=== PATIENT | female | born 1995 | race African-American/Black ===

== ENCOUNTER 2023-01-08 07:49 | Emergency (ER) | payer OTHER ==
[~2023-01-08] VITALS: Ht 160 cm; Wt 51.3 kg
--- NOTE | 2023-01-08 08:00 | NUR ---
Dr Portillo at the bedside for MSE.
[2023-01-08 08:16] LABS: *BILIRUBIN,URIN 1+ (NEGATIVE); *BLOOD, URINE 2+ (NEGATIVE); *CLARITY,URINE CLEAR (CLEAR); *COLOR,URINE YELLOW (YELLOW); *KETONES,URINE 4+ (NEGATIVE); *UROBILINOGEN,URINE 0.2 E.U./dl (NORMAL); LEUKOCYTE ESTERASE ,URINE NEGATIVE (NEGATIVE); NITRITE, URINE NEGATIVE (NEGATIVE); UGLUCOSE NEGATIVE (NEGATIVE)
[2023-01-08 08:17] LABS: *URINE HCG, QUAL NEGATIVE (NEGATIVE)
[2023-01-08] MEDS ORDERED: IV NORMAL SALINE 500 ML BAG IV ONE (08:30)
[2023-01-08 09:06] LABS: HEMATOCRIT 31.2 % (31.2-41.9); MEAN CORPUSCULAR HEMOGLOBIN 27.3 uug (24.7-32.8); MEAN CORPUSCULAR VOLUME 81.5 fL (75.5-95.3); PLATELET COUNT (AUTO) 597 K/uL (179-408)
[2023-01-08 09:15] LABS: BILIRUBIN,TOTAL 0.6 mg/dL (0.2-1.0); CREATININE 0.8 mg/dL (0.6-1.3); POTASSIUM 3.5 mmol/L (3.5-5.1); TOTAL PROTEIN, SERUM 8.9 g/dL (6.4-8.2)
[2023-01-08 09:19] LABS: *OCCULT BLOOD STOOL POSITIVE (NEGATIVE)
[2023-01-08 09:30] LABS: BACTERIA,URINE NONE SEEN /HPF (NONE SEEN); SQUAMOUS EPITHELIAL CELL,UR NONE SEEN /HPF (NONE SEEN); WBC,URINE NONE SEEN /HPF (0-3)
--- NOTE | 2023-01-08 11:10 | NUR ---
PT states feeling better and denies, N/V/D.
[2023-01-08] MEDS ORDERED: ONDANSETRON ODT 4 MG TAB.RAPDIS ONE (11:38)
[2023-01-08] MEDS ORDERED: ONDANSETRON ODT 4 MG TAB.RAPDIS SL ONE (11:45)
--- NOTE | 2023-01-08 12:07 | NUR ---
IV removed. Catheter intact and site benign. Pressure and 4x4 gauze applied to site. No bleeding noted.
[2023-01-08 12:08] VITALS: BP 114/70
== END 2023-01-08 12:09 | disposition home or self-care (01) ==
LOC: ER 07:49
DX: R19.7 Diarrhea, unspecified (principal); K92.1 Melena; R00.0 Tachycardia, unspecified; D64.9 Anemia, unspecified; J45.909 Unspecified asthma, uncomplicated; Z83.3 Family history of diabetes mellitus; R10.9 Unspecified abdominal pain
CPT/HCPCS: 99284; 96360; 96361; 82270; 80053; 81001; 84703; 83690; 85025; 89055; 36415; 85007; J7040 ×2; 70030-TC; A4663; Q0162